=== PATIENT | female | born 1995 | race Hispanic/Latino ===

== ENCOUNTER 2019-04-03 22:35 | Emergency (ER) | payer OTHER, SELFPAY ==
[2019-04-03 23:59] LABS: Absolute Lymphocytes (CBC) 0.6 K/uL (0.7-4.9); Basophils % 0.2 % (0-1.3); Eosinophils % 0.1 % (0-4.4); Hematocrit 37.5 % (36.0-45.0); Lymphocytes % 4.6 % (15.3-44.8); MPV 9.9 fL (7.6-11.3); Monocytes % 3.2 % (3.3-12.3); RBC Red Blood Cell Count 5.07 M/uL (3.86-4.86)
[2019-04-04 00:16] LABS: ALT/SGPT 19 U/L (12-78); AST/SGOT 18 U/L (15-37); Albumin 4.1 g/dL (3.4-5.0); Alkaline Phosphatase 109 U/L (45-117); BUN Blood Urea Nitrogen 12 mg/dL (7-18); Bicarbonate 26 mmol/L (21-32); Bilirubin Direct 0.2 mg/dL (0-0.2); Bilirubin Total 0.9 mg/dL (0.2-1.0); Glucose Level 107 mg/dL (74-106); Lipase 79 U/L (73-393); Potassium 3.4 mmol/L (3.5-5.1); Protein, Total 8.3 g/dL (6.4-8.2); Sodium Level 142 mmol/L (136-145)
[2019-04-04] MEDS ORDERED: MORPHINE 2 MG/ML SYR ONE (00:31)
[2019-04-04] MEDS ORDERED: ONDANSETRON 4 MG/2 ML VIAL ONE (00:31)
[2019-04-04] MEDS ORDERED: NA CHLORIDE 0.9% 1,000 ML ONE (00:32)
--- NOTE | 2019-04-04 01:12 | ER ---
Nurse's Notes [facility] Name: Stephanie Miguel Age: 23 yrs Sex: Female : 1995 Arrival Date: 04/03/2019 Time: 22:36 Bed 7 Private MD: Diagnosis: Abdominal tenderness;Vomiting;Hypokalemia Presentation: 04/03 23:31 Presenting complaint: Patient states: Pt complaining of abdominal pain that started at ea 5 PM, pt reports nausea and vomiting. Denies diarrhea. Pt states "it feels like labor pains" Reports pain in all quadrants. Transition of care: patient was not received from another setting of care. Onset of symptoms was April 03, 2019. Risk Assessment: Do you want to hurt yourself or someone else? Patient reports no desire to harm self or others. Initial Sepsis Screen: Does the patient meet any 2 criteria? No. Patient's initial sepsis screen is negative. Does the patient have a suspected source of infection? No. Patient's initial sepsis screen is negative. Care prior to arrival: None. 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 - Social history:: Smoking status: Patient/guardian denies using tobacco. - Ebola Screening: : No symptoms or risks identified at this time. - Family history:: not pertinent. Screenin:43 Abuse screen: Denies threats or abuse. Nutritional screening: No deficits noted. ea Tuberculosis screening: No symptoms or risk factors identified. Fall Risk None identified. Assessment: 23:46 General: Appears uncomfortable, Behavior is calm, cooperative, appropriate for age. ea Pain: Complains of pain in abdomen. Neuro: Level of Consciousness is awake, alert, obeys commands, Oriented to person, place, time, situation. Cardiovascular: Patient's skin is warm and dry. Respiratory: Airway is patent Respiratory effort is even, unlabored, Respiratory pattern is regular, symmetrical. GI: Abdomen is non-distended, Bowel sounds present X 4 quads. Abd is soft and non tender X 4 quads. GI: Reports nausea, vomiting. Derm: Skin is pink, warm \\T\\ dry. 04/04 00:00 Reassessment: Patient and/or family updated on plan of care and expected duration. Pain ea level reassessed. Patient is alert, oriented x 3, equal unlabored respirations, skin warm/dry/pink. 01:39 Reassessment: Patient and/or family updated on plan of care and expected duration. Pain ea level reassessed. Patient is alert, oriented x 3, equal unlabored respirations, skin warm/dry/pink. Discharge instruction given to patient, verbalized the understanding of instruction. Pt left ED ambulatory, accompanied by family pt tolerating well. Patient states feeling better. Patient states symptoms have improved. Vital Signs: 04/03 23:45 BP 121 / 77; Pulse 95; Resp 18; Temp 98.1; Pulse Ox 98% on R/A; Weight 81.65 kg; Height ea 5 ft. 2 in. (157.48 cm); Pain 0/10; 04/04 00:30 BP 122 / 78; Pulse 90; Resp 19; Pulse Ox 100% on R/A; ea 01:00 BP 120 / 80; Pulse 80; Resp 18; Temp 97.6; Pulse Ox 98% on R/A; ea 04/03 23:45 Body Mass Index 32.92 (81.65 kg, 157.48 cm) ea ED Course: 04/03 22:36 Patient arrived in ED. am2 23:30 Lily Loera, CHLOE is Primary Nurse. ea 23:31 Edilson Goode MD is Attending Physician. [facility] 23:43 Triage completed. ea 23:44 Arm band placed on right wrist. Patient placed in an exam room, on a stretcher, on ea pulse oximetry. 23:45 Patient has correct armband on for positive identification. Bed in low position. Call ea light in reach. Side rails up X2. 04/04 00:55 CT Abd/Pelvis - IV Contrast Only In Process Unspecified. EDMS 01:39 No provider procedures requiring assistance completed. IV discontinued, intact, ea bleeding controlled, No redness/swelling at site. Pressure dressing applied. Administered Medications: 00:23 Drug: Zofran 4 mg Route: IVP; Site: right antecubital; ea 01:00 Follow up: Response: No adverse reaction; Nausea is decreased ea 00:24 Drug: NS 0.9% 1000 ml Route: IV; Rate: 1 bolus; Site: right antecubital; ea 00:24 Drug: morphine 2 mg Route: IVP; Site: right antecubital; ea 01:00 Follow up: Response: No adverse reaction; Pain is decreased ea 01:29 Drug: Potassium Effervescent Tablet 25 mEq Route: PO; ea 01:35 Follow up: Response: No adverse reaction ea Outcome: 01:11 Discharge ordered by . javi 01:39 Discharged to home ambulatory, with family. ea 01:39 Condition: improved 01:39 Discharge instructions given to patient, Instructed on discharge instructions, follow up and referral plans. the need for admit, medication usage, Demonstrated understanding of instructions, follow-up care, medications, Prescriptions given X 3. 01:43 Patient left the ED. ea Signatures: Dispatcher [employer] EDEdilson Villela MD MD cha Moreno, Amanda am2 Antunez, Elena, RN RN jania
--- NOTE | 2019-04-04 01:13 | EDPHYS ---
Physician Documentation [facility] Name: Stephanie Miguel Age: 23 yrs Sex: Female : 1995 Arrival Date: 04/03/2019 Time: 22:36 Bed 7 Private MD: ED Physician Edilson Goode HPI: 04/04 00:11 This 23 yrs old Female presents to ER via Ambulatory with complaints of javi Abdominal Cramping, Nausea/Vomiting. 00:12 The patient presents with abdominal pain in the upper abdomen, in the lower abdomen. javi Onset: The symptoms/episode began/occurred today. The patient presents to the emergency department with nausea, vomiting, abdominal pain, of the right upper quadrant, left upper quadrant, right lower quadrant and left lower quadrant. Onset: The symptoms/episode began/occurred just prior to arrival. Possible causes: unknown. The symptoms are aggravated by nothing. The symptoms are alleviated by nothing. The symptoms do not radiate. Associated signs and symptoms: Pertinent positives: abdominal pain, nausea, vomiting. Modifying factors: The symptoms are alleviated by nothing, the symptoms are aggravated by nothing. 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 - Social history:: Smoking status: Patient/guardian denies using tobacco. - Ebola Screening: : No symptoms or risks identified at this time. - Family history:: not pertinent. ROS: 04/04 00:12 Constitutional: Negative for fever, chills, and weight loss, Eyes: Negative for injury, javi pain, redness, and discharge, ENT: Negative for injury, pain, and discharge, Neck: Negative for injury, pain, and swelling, Cardiovascular: Negative for chest pain, palpitations, and edema, Respiratory: Negative for shortness of breath, cough, wheezing, and pleuritic chest pain, Back: Negative for injury and pain, : Negative for injury, bleeding, discharge, and swelling, MS/Extremity: Negative for injury and deformity, Skin: Negative for injury, rash, and discoloration, Neuro: Negative for headache, weakness, numbness, tingling, and seizure, Psych: Negative for depression, anxiety, suicide ideation, homicidal ideation, and hallucinations, Allergy/Immunology: Negative for hives, rash, and allergies, Endocrine: Negative for neck swelling, polydipsia, polyuria, polyphagia, and marked weight changes, Hematologic/Lymphatic: Negative for swollen nodes, abnormal bleeding, and unusual bruising. Abdomen/GI: Positive for abdominal pain, nausea and vomiting, of the right upper quadrant, left upper quadrant, right lower quadrant and left lower quadrant. Exam: 00:12 Constitutional: This is a well developed, well nourished patient who is awake, alert, javi and in no acute distress. Head/Face: Normocephalic, atraumatic. Eyes: Pupils equal round and reactive to light, extra-ocular motions intact. Lids and lashes normal. Conjunctiva and sclera are non-icteric and not injected. Cornea within normal limits. Periorbital areas with no swelling, redness, or edema. ENT: Nares patent. No nasal discharge, no septal abnormalities noted. Tympanic membranes are normal and external auditory canals are clear. Oropharynx with no redness, swelling, or masses, exudates, or evidence of obstruction, uvula midline. Mucous membranes moist. Neck: Trachea midline, no thyromegaly or masses palpated, and no cervical lymphadenopathy. Supple, full range of motion without nuchal rigidity, or vertebral point tenderness. No Meningismus. Chest/axilla: Normal chest wall appearance and motion. Nontender with no deformity. No lesions are appreciated. Cardiovascular: Regular rate and rhythm with a normal S1 and S2. No gallops, murmurs, or rubs. Normal PMI, no JVD. No pulse deficits. Respiratory: Lungs have equal breath sounds bilaterally, clear to auscultation and percussion. No rales, rhonchi or wheezes noted. No increased work of breathing, no retractions or nasal flaring. Back: No spinal tenderness. No costovertebral tenderness. Full range of motion. Female : Normal external genitalia. Skin: Warm, dry with normal turgor. Normal color with no rashes, no lesions, and no evidence of cellulitis. MS/ Extremity: Pulses equal, no cyanosis. Neurovascular intact. Full, normal range of motion. Neuro: Awake and alert, GCS 15, oriented to person, place, time, and situation. Cranial nerves II-XII grossly intact. Motor strength 5/5 in all extremities. Sensory grossly intact. Cerebellar exam normal. Normal gait. Psych: Awake, alert, with orientation to person, place and time. Behavior, mood, and affect are within normal limits. 00:12 Abdomen/GI: Inspection: abdomen appears normal, Bowel sounds: normal, Palpation: abdomen is soft and non-tender, Liver: no appreciated palpable abnormalities, Hernia: not appreciated. Vital Signs: 04/03 23:45 BP 121 / 77; Pulse 95; Resp 18; Temp 98.1; Pulse Ox 98% on R/A; Weight 81.65 kg; Height ea 5 ft. 2 in. (157.48 cm); Pain 0/10; 04/04 00:30 BP 122 / 78; Pulse 90; Resp 19; Pulse Ox 100% on R/A; ea 01:00 BP 120 / 80; Pulse 80; Resp 18; Temp 97.6; Pulse Ox 98% on R/A; ea 04/03 23:45 Body Mass Index 32.92 (81.65 kg, 157.48 cm) ea MDM: 04/03 23:31 Patient medically screened. [facility] 04/04 00:12 Data reviewed: vital signs, nurses notes, lab test result(s), EKG, radiologic studies, [facility] CT scan. 04/03 23:31 Order name: Basic Metabolic Panel; Complete Time: 01:12 04/03 23:31 Order name: CBC with Diff 04/03 23:31 Order name: Creatinine for Radiology; Complete Time: 01:12 04/03 23:31 Order name: Hepatic Function; Complete Time: 01:12 04/03 23:31 Order name: Lipase; Complete Time: 01:12 04/04 00:11 Order name: Urine Culture [facility] 04/03 23:31 Order name: IV Saline Lock; Complete Time: 23:58 04/03 23:31 Order name: Labs collected and sent; Complete Time: 23:58 04/04 00:11 Order name: CT Abd/Pelvis - IV Contrast Only [facility] 04/04 01:27 Order name: CBC Smear Scan EDKY 04/04 00:11 Order name: Urine Dipstick-Ancillary (obtain specimen); Complete Time: 00:15 [facility] 04/04 00:11 Order name: Urine Test (obtain specimen); Complete Time: 00:15 javi Administered Medications: 00:23 Drug: Zofran 4 mg Route: IVP; Site: right antecubital; ea 01:00 Follow up: Response: No adverse reaction; Nausea is decreased ea 00:24 Drug: NS 0.9% 1000 ml Route: IV; Rate: 1 bolus; Site: right antecubital; ea 00:24 Drug: morphine 2 mg Route: IVP; Site: right antecubital; ea 01:00 Follow up: Response: No adverse reaction; Pain is decreased ea 01:29 Drug: Potassium Effervescent Tablet 25 mEq Route: PO; ea 01:35 Follow up: Response: No adverse reaction ea Disposition: 04/04/19 01:11 Discharged to Home. Impression: Abdominal tenderness, Vomiting, Hypokalemia. - Condition is Stable. - Discharge Instructions: Abdominal Pain, Adult, Potassium Content of Foods, Nausea and Vomiting, Adult, Nausea and Vomiting, Adult, [id number], Abdominal Pain, Adult, [id number], Hypokalemia. - Prescriptions for Bentyl 20 mg Oral Tablet - take 1 tablet by ORAL route every 6 hours As needed; 20 tablet. Pepcid 20 mg Oral Tablet - take 1 tablet by ORAL route every 12 hours for 10 days; 20 tablet. Zofran 4 mg Oral Tablet - take 1 tablet by ORAL route every 12 hours As needed; 20 tablet. - Medication Reconciliation Form, Thank You Letter, Antibiotic Education, Prescription Opioid Use, Work release form form. - Follow up: Private Physician; When: 2 - 3 days; Reason: Recheck today's complaints, Continuance of care, Re-evaluation by your physician. - Problem is new. - Symptoms have improved. Signatures: Dispatcher [employer] EDKY Edilson Goode MD MD cha Antunez, Elena RN RN ea Corrections: (The following items were deleted from the chart) 01:43 01:11 04/04/2019 01:11 Discharged to Home. Impression: Abdominal tenderness; Vomiting; ea Hypokalemia. Condition is Stable. Forms are Medication Reconciliation Form, Thank You Letter, Antibiotic Education, Prescription Opioid Use. Follow up: Private Physician; When: 2 - 3 days; Reason: Recheck today's complaints, Continuance of care, Re-evaluation by your physician. Problem is new. Symptoms have improved. javi
[2019-04-04 01:25] LABS: Blood Morphology Comment NOT SEEN (NOT SEEN); Platelet Estimate ADEQ; Urine White Blood Cell Casts OK
[2019-04-04] MEDS ORDERED: POTASSIUM 25 MEQ EFFERV TAB ONE (01:44)
--- NOTE | 2019-04-04 10:09 | RAD REPORT ---
EXAM DESCRIPTION: CT - Abdomen Pelvis W Contrast - 04/04/2019 3:08 am CLINICAL HISTORY: 23 years Female ABD PAIN TECHNIQUE: Contiguous axial images obtained through the abdomen and pelvis following the administrat ion of IV contrast. Coronal and sagittal reformatted images provided. This CT exam was performed according to our departmental dose-optimization program, which includes on e or more of the following dose reduction techniques: automated exposure control, adjustment of the m A and/or kV according to patient size, and/or use of iterative reconstruction technique. COMPARISON: No prior exams provided for comparison. FINDINGS: The lung bases, liver, biliary tree, gallbladder, pancreas, spleen, adrenal glands, kidney s, uterus, adnexa, urinary bladder, and osseous structures are normal. There is no bowel inflammation, obstruction, free intraperitoneal air, or ascites. The appendix is no rmal. No abdominal or pelvic lymphadenopathy. IMPRESSION: No acute abdominal or pelvic abnormalities. Electronically signed by: Elena Goss MD 04/04/2019 1:04 AM CDT Due to temporary technical issues with the PACS/Fluency reporting system, reports are being signed by the in house radiologist as a courtesy to ensure prompt reporting. The interpreting radiologist is f ully responsible for the content of the report.
== END 2019-04-04 01:43 | disposition home or self-care (01) ==
LOC: ER 22:35
DX: E87.6 Hypokalemia (principal); R11.10 Vomiting, unspecified
CPT/HCPCS: 36415; 74177; 80048; 80076; 83690; 85025; 87086; 87088; 96374; 96375; 99284; J2270; J2405; J7030; Q9967